=== PATIENT | male | born 1960 | race Caucasian/White ===

== ENCOUNTER 2017-11-28 16:21 | Inpatient (IN) | payer MEDICAID ==
[~2017-11-28] VITALS: Ht 175.3 cm; Wt 97.7 kg
[2017-11-28 16:26] VITALS: Ht 175.3 cm; Wt 97.7 kg
[2017-11-28 18:18] LABS: BASOPHIL % 0.4 % (0-2); PLATELET COUNT 177 x10^3mcL (130-400); RED CELL DISTRIBUTION WIDTH 12.6 % (11.5-14.5)
[2017-11-28 18:25] LABS: ALKALINE PHOSPHATASE 59 U/L (46-116); ALT/SGPT 69 U/L (16-63); AST/SGOT 50 U/L (15-37); BILIRUBIN TOTAL 0.8 mg/dL (0.20-1.00); CALCIUM 7.8 mg/dL (8.5-10.1); CARBON DIOXIDE 29.8 mmol/L (21-32); CHLORIDE SERUM 99 mmol/L (98-107); CREATININE SERUM 1.3 mg/dL (0.7-1.3); GFR1 > 60 mL/min; GLUCOSE SERUM 130 mg/dL (74-106); SODIUM SERUM 136 mmol/L (136-145); TOTAL PROTEIN, SERUM 6.3 g/dL (6.4-8.2)
[2017-11-28 18:27] LABS: ALBUMIN 2.8 g/dL (3.4-5.0); POTASSIUM SERUM 2.8 mmol/L (3.5-5.1)
[2017-11-28 20:02] LABS: CHOLESTEROL/HDL RATIO 2.6; MAGNESIUM 1.7 mg/dL (1.8-2.4); PHOSPHOROUS 3.4 mg/dL (2.5-4.9)
[2017-11-28 20:10] LABS: T3 TOTAL 0.92 ng/mL
[2017-11-28] MEDS ORDERED: NEU300 PO (20:17)
[2017-11-28] MEDS ORDERED: LIPI10 PO (20:18)
[2017-11-28] MEDS ORDERED: HYDROCHLOROTHIA25 MG PO (20:19)
[2017-11-28] MEDS ORDERED: ATENOLOL25 MG PO (20:19)
[2017-11-28] MEDS ORDERED: ASPIR 8181 MG PO (20:20)
[2017-11-28] MEDS ORDERED: APAP/HYDROCODON1 T15 PO (20:20)
[2017-11-28] MEDS ORDERED: METFORMIN HCL1000 MG PO (20:20)
[2017-11-28 20:27] LABS: FREE T4 1.2 ng/dL (0.76-1.46); FREE THYROXINE INDEX 3.1 ug/dL (1.4-4.5)
[2017-11-28 21:08] LABS: RED BLOOD CELLS 4.06 M/mm3 (4.52-5.90)
[2017-11-28 21:14] VITALS: BP 97/54
[2017-11-28 21:16] LABS: IRON 14 ug/dL (65-170); TOTAL IRON BINDING CAPACITY 238 ug/dL (250-450)
[2017-11-29 06:20] VITALS: BP 105/61
[2017-11-29 07:16] LABS: BASOPHIL % 0.3 % (0-2); PLATELET COUNT 171 x10^3mcL (130-400); RED CELL DISTRIBUTION WIDTH 12.8 % (11.5-14.5)
[2017-11-29 07:23] LABS: CALCIUM 7.6 mg/dL (8.5-10.1); CARBON DIOXIDE 28.1 mmol/L (21-32); CHLORIDE SERUM 103 mmol/L (98-107); CREATININE SERUM 1.1 mg/dL (0.7-1.3); GFR1 > 60 mL/min; GLUCOSE SERUM 158 mg/dL (74-106); MAGNESIUM 1.9 mg/dL (1.8-2.4); POTASSIUM SERUM 3.6 mmol/L (3.5-5.1); SODIUM SERUM 139 mmol/L (136-145)
[2017-11-29 10:00] VITALS: BP 107/71
[2017-11-29 13:28] LABS: microscopic required? NO
[2017-11-29 14:15] LABS: UA SPECIFIC GRAVITY 1.025 (1.005-1.035); urine erythrocyte NEGATIVE (NEGATIVE)
[2017-11-29 14:19] LABS: AMPHETAMINE QUAL UR POSITIVE (NEG <=1000)
[2017-11-29 14:21] VITALS: BP 107/69
[2017-11-29 18:05] VITALS: BP 113/63
[2017-11-29 21:06] VITALS: BP 111/67
[2017-11-30 05:27] VITALS: BP 120/73
[2017-11-30 07:31] LABS: BASOPHIL % 0.3 % (0-2); PLATELET COUNT 198 x10^3mcL (130-400); RED CELL DISTRIBUTION WIDTH 13.1 % (11.5-14.5)
[2017-11-30 07:36] LABS: CALCIUM 8.2 mg/dL (8.5-10.1); CARBON DIOXIDE 27.8 mmol/L (21-32); CHLORIDE SERUM 103 mmol/L (98-107); CREATININE SERUM 1.1 mg/dL (0.7-1.3); GFR1 > 60 mL/min; GLUCOSE SERUM 148 mg/dL (74-106); MAGNESIUM 1.7 mg/dL (1.8-2.4); PHOSPHOROUS 3.2 mg/dL (2.5-4.9); POTASSIUM SERUM 3.2 mmol/L (3.5-5.1); SODIUM SERUM 140 mmol/L (136-145)
[2017-11-30 08:29] VITALS: BP 109/69
[2017-11-30 13:15] VITALS: BP 100/66
[2017-11-30 16:07] VITALS: BP 106/64
[2017-11-30 22:31] VITALS: BP 112/75
[2017-12-01 06:26] LABS: CALCIUM 8.1 mg/dL (8.5-10.1); CARBON DIOXIDE 28.6 mmol/L (21-32); CHLORIDE SERUM 104 mmol/L (98-107); GFR1 > 60 mL/min; GLUCOSE SERUM 93 mg/dL (74-106); MAGNESIUM 1.4 mg/dL (1.8-2.4); PHOSPHOROUS 3.4 mg/dL (2.5-4.9); POTASSIUM SERUM 3.5 mmol/L (3.5-5.1); SODIUM SERUM 140 mmol/L (136-145)
[2017-12-01 06:32] VITALS: BP 106/63
[2017-12-01 06:39] LABS: BASOPHIL % 0.5 % (0-2); PLATELET COUNT 182 x10^3mcL (130-400); RED CELL DISTRIBUTION WIDTH 12.9 % (11.5-14.5)
[2017-12-01 08:45] VITALS: BP 115/66
[2017-12-01] MEDS ORDERED: CYCLOBENZAPRINE5 MG PO (12:34)
[2017-12-01] MEDS ORDERED: VITC PO (12:36)
[2017-12-01] MEDS ORDERED: FER300 PO (12:37)
[2017-12-01] MEDS ORDERED: COL100 PO (12:38)
[2017-12-01 16:50] VITALS: BP 104/68
[2017-12-01 22:09] VITALS: BP 102/47
[2017-12-01 22:21] VITALS: BP 132/59
[2017-12-02 05:28] VITALS: BP 130/86
[2017-12-02 07:14] LABS: BASOPHIL % 0.3 % (0-2); PLATELET COUNT 228 x10^3mcL (130-400); RED CELL DISTRIBUTION WIDTH 12.9 % (11.5-14.5)
[2017-12-02 07:30] LABS: CALCIUM 8.3 mg/dL (8.5-10.1); CARBON DIOXIDE 26.1 mmol/L (21-32); CHLORIDE SERUM 102 mmol/L (98-107); GFR1 > 60 mL/min; GLUCOSE SERUM 139 mg/dL (74-106); MAGNESIUM 1.8 mg/dL (1.8-2.4); POTASSIUM SERUM 4.1 mmol/L (3.5-5.1); SODIUM SERUM 140 mmol/L (136-145)
[2017-12-02 09:44] VITALS: BP 105/65
[2017-12-02] MEDS ORDERED: GABAPENTIN400 M1 PO (10:42)
[2017-12-02] MEDS ORDERED: TAM75 PO (10:42)
[2017-12-02] MEDS ORDERED: CYMBALTA30 M1 PO (10:43)
[2017-12-02 12:35] VITALS: BP 118/73
[2017-12-02 17:01] VITALS: BP 118/73
[2017-12-02 17:02] VITALS: BP 109/60
[2017-12-02 21:11] VITALS: BP 107/57
[2017-12-03 05:21] VITALS: BP 128/80
[2017-12-03] MEDS ORDERED: NOR10T PO (09:33)
[2017-12-03 09:37] VITALS: BP 106/59
[2017-12-03 12:17] VITALS: BP 102/59
== END 2017-12-03 16:00 | disposition home health service (06) | DRG 347 ==
LOC: ED 16:21 → DU 19:25 → MU 19:25 → DU 20:56 → MU 12-01 09:17
PROVIDERS: Emergency Medicine; Family Medicine; Student in an Organized Health Care Education/Training Program
DX: M48.07 Spinal stenosis, lumbosacral region (principal); I50.43 Acute on chronic combined systolic (congestive) and diastolic (congestive) heart failure; E43 Unspecified severe protein-calorie malnutrition; E11.65 Type 2 diabetes mellitus with hyperglycemia; D50.9 Iron deficiency anemia, unspecified; F11.10 Opioid abuse, uncomplicated; E83.42 Hypomagnesemia; E83.39 Other disorders of phosphorus metabolism; E87.6 Hypokalemia; M51.16 Intervertebral disc disorders with radiculopathy, lumbar region; J10.1 Influenza due to other identified influenza virus with other respiratory manifestations; I35.0 Nonrheumatic aortic (valve) stenosis; F15.10 Other stimulant abuse, uncomplicated; F12.10 Cannabis abuse, uncomplicated; D64.9 Anemia, unspecified; Z79.84 Long term (current) use of oral hypoglycemic drugs; Z79.82 Long term (current) use of aspirin; Z79.891 Long term (current) use of opiate analgesic; Z68.32 Body mass index [BMI] 32.0-32.9, adult
CPT/HCPCS: 82962; 83880; 84439; 87804; 97110-GP; 97116-GP; 97530-GP; G0480; J1100; J2916; J3475; J3480; J3490; J7030; J7620; Q0092